=== PATIENT | female | born 1935 | race Caucasian/White ===

== ENCOUNTER 2021-06-01 19:52 | Emergency (ER) | payer BC, OTHER ==
[2021-06-01 20:11] VITALS: BP 133/78; PULSE 90; TEMP 98; BMI 23.6
== END 2021-06-01 22:13 | disposition home or self-care (01) ==
LOC: JERFT 19:52 → JER 19:52
DX: M70.22 Olecranon bursitis, left elbow (principal); W22.09XA Striking against other stationary object, initial encounter
CPT/HCPCS: 99281-25